=== PATIENT | male | born 1960 | race Caucasian/White ===

== ENCOUNTER → 2019-11-08 09:43 | Outpatient (CLI) | payer BC, SELFPAY ==
--- NOTE | ~2019-11-08 | US_ITS ---
US scrotum doppler INDICATION: Localized testicular swelling. Mass. Recent injury. TECHNIQUE: Testicular sonogram utilizing grayscale and color Doppler FINDINGS: The testes are normal in size and appearance. No focal lesions are seen. The right testes measures 5.4 x 3 x 3.5 cm centimeters, and the left testis measures 5.9 x 2.8 x 3.2 cm cm. There is n ormal vascular flow to both testes. There is a 2.3 x 2 x 1.8 cm left epididymal cysts. There are small hydroceles. No varicocele identified. IMPRESSION: 1. 2.3 cm left epididymal cyst. 2: Small hydroceles. Reviewed, dictated and finalized at location B. [employer]
== END ==
PROVIDERS: PCP Family Medicine; Visit Provider Family Medicine
DX: N50.89 Other specified disorders of the male genital organs (principal); N43.3 Hydrocele, unspecified; N50.3 Cyst of epididymis
CPT/HCPCS: 76870; 93976